=== PATIENT | male | born 1995 | race Hispanic/Latino ===

== ENCOUNTER → 2022-04-15 17:18 | Outpatient (CLI) | payer OTHER, SELFPAY ==
[2022-05-14 09:35] LABS: Semen Sperm Prescence Post-Vas Absent (ABSENT)
== END ==
PROVIDERS: PCP Specialist; Referring Provider Specialist; Visit Provider Specialist
DX: Z98.52 Vasectomy status (principal)
CPT/HCPCS: 89321